=== PATIENT | male | born 1995 | race American Indian/Alaskan Native ===

== ENCOUNTER 2020-02-04 12:26 | Emergency (ER) | payer SELFPAY ==
[2020-02-04 18:06] VITALS: BP 134/67
--- NOTE | 2020-02-04 18:17 | Event Note ---
ED Screening Note Date of service: 02/04/20 Time: 18:00 ED Screening Note: This is a 24-year-old male presents complaining of initial sore throat, coughing that resolved 2 days ago and followed by dizziness and weakness body aches worsening today This initial assessment/diagnostic orders/clinical plan/treatment(s) is/are subject to change based on patients health status, clinical progression and re- assessment by fellow clinical providers in the ED. Further treatment and workup at subsequent clinical providers discretion. Patient/guardian urged not to elope from the ED as their condition may be serious if not clinically assessed and managed. Initial orders include: cbc,cmp,[id number]
[2020-02-04 18:50] LABS: Bilirubin,Urine NEG (Negative); Blood,Urine NEG (Negative); Color,Urine Yellow (Yellow); Mucus,Urine FEW /HPF
[2020-02-04 18:59] LABS: Basophils # (Auto) 0.1 K/mm3 (0.0-0.1); Basophils % (Auto) 0.5 % (0.0-1.8); Eosinophils % (Auto) 0.5 % (0.0-4.3); Hematocrit 45.6 % (35.5-45.6); Hemoglobin 15.8 gm/dl (11.8-15.2); Lymphocytes # (Auto) 3.8 K/mm3 (1.2-5.4); Lymphocytes % (Auto) 40.9 % (13.4-35.0); Mean Corpuscular HGB Conc 35 % (32-34); Mean Corpuscular Volume 89 fl (84-94); Monocytes # (Auto) 0.6 K/mm3 (0.0-0.8); Monocytes % (Auto) 6.9 % (0.0-7.3); Platelet Count 319 K/mm3 (140-440); Red Cell Distribution Width 14.2 % (13.2-15.2)
[2020-02-04 19:17] LABS: Alanine Aminotransferase 16 units/L (7-56); Albumin 4.7 g/dL (3.9-5); BUN/Creatinine Ratio 14; Blood Urea Nitrogen 15 mg/dL (9-20); Calcium 9.8 mg/dL (8.4-10.2); Hemolysis Index 17
== END 2020-02-04 20:00 | disposition left against medical advice (07) ==
LOC: ED 12:26 → EDBD 12:26 → ED 20:00
DX: R42 Dizziness and giddiness (principal); Z53.21 Procedure and treatment not carried out due to patient leaving prior to being seen by health care provider
CPT/HCPCS: 36415; 80053; 81001; 85025